=== PATIENT | female | born 1945 | race Caucasian/White ===

== ENCOUNTER → 2022-11-29 14:10 | Outpatient (BNVA) | payer MEDICARE, SELFPAY | PROVIDERS: Referring Provider Physician Assistant; Visit Provider Podiatrist Foot & Ankle Surgery | DX: M19.071 Primary osteoarthritis, right ankle and foot (principal); M20.11 Hallux valgus (acquired), right foot | CPT/HCPCS: 99204 ==

== ENCOUNTER → 2023-09-05 10:15 | Outpatient (BNVA) | payer MEDICARE, SELFPAY | PROVIDERS: PCP Family Medicine; Visit Provider Internal Medicine Rheumatology | DX: Z79.899 Other long term (current) drug therapy (principal); M19.90 Unspecified osteoarthritis, unspecified site; Z11.59 Encounter for screening for other viral diseases; M81.0 Age-related osteoporosis without current pathological fracture; Z11.1 Encounter for screening for respiratory tuberculosis; M19.041 Primary osteoarthritis, right hand; M21.612 Bunion of left foot | CPT/HCPCS: 36415; 73130; 73630; 80076; 82306; 82565; 85025; 85651; 86140; 86200; 86431; 86480; 86704; 86803; 87340; 99204 ==

== ENCOUNTER 2023-09-11 13:02 | Outpatient (CLI) | payer MEDICARE, SELFPAY ==
--- NOTE | 2023-09-11 13:30 | XR_ITS ---
WS: [id number] SCREENING DEXA SCAN [employer] CLINICAL INFORMATION: M81.0 - Age-related osteoporosis without current patholog... COMPARISON: 2018 FINDINGS: The L1-L4 bone mineral density measures 1.004 g/cm2. This corresponds to a T score score of -1.5 and Z score of -0.4. Left femoral neck bone mineral density measures 0.891 g/cm2. This corresponds to a T score of -0.9 an d Z score of 0.4. Right femoral neck bone mineral density measures 0.763 g/cm2. This corresponds to a T score -1.9of an d Z score of -0.6. Mean femoral neck bone mineral density measures 0.827 g/cm2. This corresponds to a T score of -1.4 an d Z score of -0.1. IMPRESSION: Osteopenia lumbar spine. Osteopenia femoral necks. Patient's FRAX calculated 10 year probability for major osteoporotic fracture is 50.8% and osteoporot ic hip fracture is 33.1%. Bone mineral density lumbar spine increased 2.8% Bone mineral density femoral necks decreased -7.6%
== END 2023-09-11 13:03 | disposition home or self-care (01) ==
LOC: RAD 13:02
PROVIDERS: PCP Family Medicine; Visit Provider Internal Medicine Rheumatology
DX: M81.0 Age-related osteoporosis without current pathological fracture (principal); M85.88 Other specified disorders of bone density and structure, other site
CPT/HCPCS: 77080

== ENCOUNTER → 2023-11-22 14:33 | Outpatient (BNVA) | payer MEDICARE, SELFPAY | PROVIDERS: PCP Family Medicine; Visit Provider Internal Medicine Rheumatology | DX: Z79.899 Other long term (current) drug therapy; R76.8 Other specified abnormal immunological findings in serum; Z71.85 Encounter for immunization safety counseling; M05.79 Rheumatoid arthritis with rheumatoid factor of multiple sites without organ or systems involvement | CPT/HCPCS: 36415; 87517; 99214 ==

== ENCOUNTER 2024-02-15 09:50 | Outpatient (CLI) | payer MEDICARE, SELFPAY ==
--- NOTE | 2024-02-15 09:53 | CT_ITS ---
WS: [id number] LDCT LUNG CANCER SCREENING TECHNIQUE: Noncontrast CT of the chest with coronal and sagittal reformatted images. CLINICAL INFORMATION: NICOTINE DEPENDENCE,CIGARETTES COMPARISON: None. DLP: 91.77 mGy.cm DIvol: Mean CTDIvol: 1.90 (mGy) All CT scans at [facility] use at least one of these dose optimization techniques: automat ed exposure control; mA and/or kV adjustment per patient size (includes targeted exams where dose is matched to clinical indication); or iterative reconstruction. FINDINGS: Slight bibasal atelectasis. A few tiny micronodules. 5 mm pleural nodule along the RIGHT horizontal f issure. No other suspicious pulmonary parenchymal abnormalities. Normal caliber thoracic aorta. Aortic calcification. Coronary calcification. No mediastinal or hilar lymphadenopathy. No axillary lymphadenopathy. Cholecystectomy clips. Small esophageal hiatal hernia. Vascular calcification. Adrenal glands are nor mal. LEFT renal cyst. Splenic artery calcification. Mild thoracic curve. Mild thoracic kyphosis. Hype rtrophic changes thoracic spine. CT/CT lung screening [id number] IMPRESSION: LUNG-RADS: 2-Benign Appearance or Behavior FOLLOW UP: 12 Month: Continue annual screening with LDCT
== END 2024-02-15 09:51 | disposition home or self-care (01) ==
LOC: RAD 09:50
PROVIDERS: PCP Family Medicine; Visit Provider Family Medicine
DX: F17.210 Nicotine dependence, cigarettes, uncomplicated (principal); Z12.2 Encounter for screening for malignant neoplasm of respiratory organs
CPT/HCPCS: 71271

== ENCOUNTER → 2024-03-06 10:43 | Outpatient (BNVA) | payer MEDICARE, SELFPAY | PROVIDERS: PCP Family Medicine; Referring Provider Family Medicine; Visit Provider Physician Assistant | DX: M17.11 Unilateral primary osteoarthritis, right knee | CPT/HCPCS: 73560; 73565; 99203 ==

== ENCOUNTER 2024-03-06 14:00 | Outpatient (CLI) | payer MEDICARE, SELFPAY | END 2024-03-06 14:01 | disposition home or self-care (01) | LOC: SPT 14:01 | PROVIDERS: PCP Family Medicine; Visit Provider Physician Assistant | DX: Z46.89 Encounter for fitting and adjustment of other specified devices (principal); M17.11 Unilateral primary osteoarthritis, right knee | CPT/HCPCS: 97760; L1851 ==

== ENCOUNTER → 2024-04-10 14:13 | Outpatient (BNVA) | payer MEDICARE, SELFPAY | PROVIDERS: PCP Family Medicine; Visit Provider Internal Medicine Rheumatology | DX: M05.79 Rheumatoid arthritis with rheumatoid factor of multiple sites without organ or systems involvement (principal); M19.041 Primary osteoarthritis, right hand; M19.042 Primary osteoarthritis, left hand; Z11.1 Encounter for screening for respiratory tuberculosis; Z11.59 Encounter for screening for other viral diseases; Z71.85 Encounter for immunization safety counseling; Z79.899 Other long term (current) drug therapy | CPT/HCPCS: 36415; 80076; 82565; 85025; 85651; 86140; 99214 ==

== ENCOUNTER → 2024-07-31 09:05 | Outpatient (BNVA) | payer MEDICARE, SELFPAY | PROVIDERS: PCP Family Medicine; Visit Provider Physician Assistant | DX: M17.0 Bilateral primary osteoarthritis of knee (principal) | CPT/HCPCS: 73560; 73565; 99213 ==

== ENCOUNTER → 2024-08-20 10:56 | Outpatient (BNVA) | payer MEDICARE, SELFPAY | PROVIDERS: PCP Family Medicine; Visit Provider Internal Medicine Rheumatology | DX: M05.79 Rheumatoid arthritis with rheumatoid factor of multiple sites without organ or systems involvement (principal); Z79.899 Other long term (current) drug therapy; Z71.85 Encounter for immunization safety counseling | CPT/HCPCS: 99214 ==

== ENCOUNTER → 2024-12-01 08:55 | Outpatient (BNVA) | payer MEDICARE, SELFPAY | PROVIDERS: PCP Family Medicine; Visit Provider Internal Medicine | DX: E03.9 Hypothyroidism, unspecified (principal); Z78.0 Asymptomatic menopausal state | CPT/HCPCS: 99204 ==

== ENCOUNTER 2024-12-16 14:09 | Outpatient (CLI) | payer MEDICARE, SELFPAY ==
[2024-12-16 15:02] LABS: Basophils # 0.1 10^3/uL (0.0-0.1); Basophils % 0.7 %; Eosinophils # 0.1 10^3/uL (0.0-0.8); Eosinophils % 1.7 %; Hematocrit 39.1 % (36-47); Lymphocytes % 28.8 %; Mean Corpuscular Hemoglobin 29.4 pg (27-33); Mean Corpuscular Volume 86.5 fl (85-98); Mean Platelet Volume 10.7 fL (7.4-10.4); Monocytes # 0.8 10^3/uL (0.2-0.9); Monocytes % 10.7 %; Neutrophils # 4.03 10^3/uL (1.8-7.7); Neutrophils % 57.4 %; Nucleated Red Blood Cells % 0 %; Platelet Count 203 10^3/cmm (157-399); Red Blood Count 4.52 10^6/uL (3.85-5.65); Red Cell Distribution Width 13.7 % (12.1-15.1); White Blood Count 7.02 10^3/uL (3.29-11.43)
[2024-12-16 15:12] LABS: Erythrocyte Sedimentation Rate 5 mm/hr (0-15)
[2024-12-16 17:30] LABS: Alanine Aminotransferase 21 U/L (0-33); Albumin Level 4.3 g/dL (3.5-5.2); Alkaline Phosphatase 62 U/L (35-105); Aspartate Amino Transferase 25 U/L (0-32); Globulin 2.2 g/dL (1.3-4.6); Thyroid Stimulating Hormone 0.24 uIU/mL (0.27-4.20); Total Bilirubin 0.5 mg/dL (0.15-1.2); Total Protein 6.5 g/dL (6.6-8.7)
[2024-12-16 21:07] LABS: Free T4 Free Thyroxine 1.49 ng/dL (0.82-1.77)
== END 2024-12-16 14:10 | disposition home or self-care (01) ==
LOC: LAB 14:11
PROVIDERS: PCP Family Medicine; Visit Provider Internal Medicine Rheumatology
DX: M05.79 Rheumatoid arthritis with rheumatoid factor of multiple sites without organ or systems involvement (principal); Z79.899 Other long term (current) drug therapy; E03.9 Hypothyroidism, unspecified
CPT/HCPCS: 36415; 80076; 82565; 84439; 84443; 85025; 85651; 86140

== ENCOUNTER → 2024-12-24 08:50 | Outpatient (BNVA) | payer MEDICARE, SELFPAY | PROVIDERS: PCP Family Medicine; Visit Provider Internal Medicine Rheumatology | DX: Z79.899 Other long term (current) drug therapy (principal); Z71.85 Encounter for immunization safety counseling; M05.79 Rheumatoid arthritis with rheumatoid factor of multiple sites without organ or systems involvement | CPT/HCPCS: 99214 ==

== ENCOUNTER 2025-02-11 16:47 | Emergency (ER) | payer MEDICARE, SELFPAY ==
--- NOTE | 2025-02-11 16:51 | ECG_ITS ---
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
--- NOTE | 2025-02-11 16:51 | XRR_ITS ---
PROCEDURE INFORMATION: Exam: XR Chest Exam date and time: 02/11/2025 5:03 PM Age: 79 years old Clinical indication: Other: Dizzy TECHNIQUE: Imaging protocol: Radiologic exam of the chest. Views: 1 view. COMPARISON: CT lung screening [id number] 02/15/2024 10:10 AM FINDINGS: Lungs: Lungs appear clear without consolidation. Pleural spaces: No evidence of a pneumothorax. No pleural effusion is seen. Heart/Mediastinum: Normal size of the cardiac silhouette. Vasculature: There is atherosclerotic calcification within the aortic arch. Bones/joints: Scattered degenerative changes in the visualized spine. There are degenerative changes in the shoulders. XR/XR chest 1V portable [id number] IMPRESSION: 1. No radiographically apparent acute cardiopulmonary disease.
[2025-02-11 17:03] VITALS: BP 175/92; PULSE 61; RESP 18; TEMP 36.7; O2SAT 95; BMI 32.0
[2025-02-11 17:08] LABS: Glucose Point of Care 144 mg/dL (70-110)
[2025-02-11 17:22] LABS: Basophils % 0.5 %; Eosinophils # 0.2 10^3/uL (0.0-0.8); Eosinophils % 2.1 %; Hematocrit 40.3 % (36-47); Lymphocytes # 1.9 10^3/uL (0.8-4.8); Lymphocytes % 23.9 %; Mean Corpuscular HGB Conc 33.5 g/dL (30-55); Mean Corpuscular Hemoglobin 28.8 pg (27-33); Mean Corpuscular Volume 85.9 fl (85-98); Mean Platelet Volume 11.1 fL (7.4-10.4); Monocytes # 0.6 10^3/uL (0.2-0.9); Monocytes % 7.4 %; Neutrophils % 65.7 %; Nucleated Red Blood Cells % 0 %; Platelet Count 178 10^3/cmm (157-399); Red Blood Count 4.69 10^6/uL (3.85-5.65); Red Cell Distribution Width 13.2 % (12.1-15.1); White Blood Count 8.07 10^3/uL (3.29-11.43)
[2025-02-11 17:35] LABS: INR 0.91 (0.8-1.2)
[2025-02-11 17:45] LABS: Alanine Aminotransferase 26 U/L (0-33); Alkaline Phosphatase 57 U/L (35-105); Aspartate Amino Transferase 25 U/L (0-32); Blood Urea Nitrogen 13 mg/dL (8-23); Calcium 9.4 mg/dL (8.5-10.5); Carbon Dioxide 23 mmol/L (22-29); Chloride 101 mmol/L (98-107); Creatinine Clr Calc Pharmacy 50.2696; Globulin 2.3 g/dL (1.3-4.6); Glucose 117 mg/dL (65-115); Osmolality Calculated 287 mOsm/kg (285-295); Sodium 138 mmol/L (136-145); Total Bilirubin 0.2 mg/dL (0.15-1.2); Total Protein 6.3 g/dL (6.6-8.7)
[2025-02-11 17:46] LABS: Anion Gap 17.5 (5-19); Potassium 3.5 mmol/L (3.5-5.1)
--- NOTE | 2025-02-11 18:05 | CTR_ITS ---
PROCEDURE INFORMATION: Exam: CT Head Without Contrast Exam date and time: 02/11/2025 6:33 PM Age: 79 years old Clinical indication: Dizziness; Additional info: Vertigo, gait issues TECHNIQUE: Imaging protocol: Computed tomography of the head without contrast. Radiation optimization: All CT scans at this facility use at least one of these dose optimization techniques: automated exposure control; mA and/or kV adjustment per patient size (includes targeted exams where dose is matched to clinical indication); or iterative reconstruction. COMPARISON: CR XR cervical spine 3V* [id number] 03/02/2023 12:59 PM RADIATION DOSE METRICS: Total DLP (mGy-cm): 1020.19 FINDINGS: Brain: There is mild cerebral volume loss with associated mild prominence of the CSF spaces. There is patchy hypoattenuation in the periventricular white matter. While nonspecific, this is favored to represent chronic small vessel ischemic change. No evidence of acute intracranial hemorrhage. No extra-axial fluid collection. No intracranial mass or mass effect. No midline shift. Cerebral ventricles: The ventricles appear enlarged, in proportion to the mild parenchymal volume loss. Paranasal sinuses: Visualized paranasal sinuses are normally aerated and clear throughout. Mastoid air cells: Visualized mastoid air cells are clear. Bones: Osseous calvarium appears intact. No fracture is seen. Soft tissues: The visualized superficial soft tissues have a normal appearance. Vasculature: There is calcific atherosclerosis within the cavernous carotids. CT/CT head wo con* [id number]PRESS[address]: 1. No CT evidence of acute intracranial pathology. 2. Chronic senescent changes as above.
--- NOTE | 2025-02-11 18:11 | W.ED.DIZZY ---
HPI - Dizziness General: Chief Complaint: Dizziness Stated Complaint: dizziness Time Seen by Provider: 02/11/25 18:05 History of Present Illness: HPI Narrative: 79-year-old female with a history of rheumatoid arthritis on prednisone 5 mg daily and hydroxychloroquine, hypertension, hyperlipidemia and diet-controlled diabetes who presents to the emergency room with dizziness and balance issues. This been going on for about a week now. Worse today. No nausea or vomiting. No altered mental status. No focal motor deficits. Dizziness seems to be positional in nature. When she rolls over or sits up. Related Data Home Medications ?Medication ?Instructions ?Recorded ?Confirmed hydrochlorothiazide 12.5 mg tablet 12.5 mg PO DAILY 09/05/23 12/24/24 levothyroxine 112 mcg tablet 112 mcg PO DAILY 09/05/23 12/24/24 (Synthroid) losartan 50 mg tablet 50 mg PO DAILY 09/05/23 12/24/24 metoprolol succinate 25 mg 25 mg PO DAILY 09/05/23 12/24/24 tablet,extended release 24 hr rosuvastatin 10 mg tablet 10 mg PO DAILY 09/05/23 12/24/24 Previous Rx's ?Medication ?Instructions ?Recorded Right Knee (medial) Checkout Operator Brace #1 ea 03/06/24 diclofenac sodium 1 % topical gel 4 g topical QID #100 grams 04/10/24 (Voltaren Arthritis Pain) hydroxychloroquine 200 mg tablet 200 mg PO BID #60 tabs 12/24/24 omeprazole 20 mg capsule,delayed 20 mg PO DAILY #90 caps 12/24/24 release prednisone 5 mg tablet 5 mg PO DAILY #90 tabs 12/24/24 cephalexin 500 mg tablet 500 mg PO TID 5 days #15 tabs 02/11/25 meclizine 25 mg tablet 25 mg PO QID PRN dizziness #20 tabs 02/11/25 Allergies Allergy/AdvReac Type Severity Reaction Status Date / Time leflunomide AdvReac Intermediate Diarrhea Verified 12/24/24 09:21 Review of Systems Narrative: Constitutional symptoms: Negative except as documented in HPI. Skin symptoms: Negative except as documented in HPI. Eye symptoms: Negative except as documented in HPI. ENMT symptoms: Negative except as documented in HPI. Respiratory symptoms: Negative except as documented in HPI. Cardiovascular symptoms: Negative except as documented in HPI. Gastrointestinal symptoms: Negative except as documented in HPI. Genitourinary symptoms: Negative except as documented in HPI. Musculoskeletal symptoms: Negative except as documented in HPI. Neurologic symptoms: Negative except as documented in HPI. Psychiatric symptoms: Negative except as documented in HPI. Endocrine symptoms: Negative except as documented in HPI. PFSH ED PFSH: Medical History Post-menopausal Hypothyroid Seropositive rheumatoid arthritis of multiple sites Immunization counseling High risk medication use Inflammatory arthritis Hypertension Diabetes Surgical History History of cholecystectomy Family History Other Diabetes mellitus, type 2 Rheumatoid arthritis Social History (Updated 12/24/24 @ 09:22 by Ama Parisi LPN) Smoking and tobacco/nicotine status: current every day tobacco/nicotine user (vape) e-cigarettes E-Cigarette Details: vaporizer device Alcohol intake: current Alcohol intake frequency: 0-2 Drinks per Day Physical Exam Narrative: EXAM NARRATIVE: General: Alert, no acute distress. Skin: Warm, dry. Head: Normocephalic, atraumatic. Neck: Supple, trachea midline. Eye: Extraocular movements are intact. Ears, nose, mouth and throat: mucosa moist. Cardiovascular: Regular, Normal peripheral perfusion. Respiratory: Lungs are clear to auscultation, respirations are non-labored, breath sounds are equal, Symmetrical chest wall expansion. Gastrointestinal: Soft, Nontender, Non distended Musculoskeletal: Normal ROM, no deformity. Neurological: Alert and oriented, No focal neurological deficit observed. Psychiatric: Cooperative, appropriate mood & affect. Course Vital Signs: Vital signs: Vital Signs Temperature 98.0 F 02/11/25 17:03 Pulse Rate 57 L 02/11/25 18:27 Respiratory Rate 18 02/11/25 17:03 Blood Pressure 175/92 02/11/25 17:03 Pulse Oximetry 96 02/11/25 18:27 Oxygen Delivery Me thod Room Air 02/11/25 17:03 MDM - Dizziness Medical Decision Making Medical decision making: Differential diagnosis including but not limited to and based on the above HPI, review of systems and physical exam: for patient with complaint of dizziness: stroke, hypotension, hypertension, infection, vertigo, orthostasis Orders placed to evaluate differential diagnosis based on the above differential, HPI and physical exam EKG: Normal sinus rhythm, No ST-T changes, no ectopy, normal CA & QRS intervals, This was reviewed and interpreted by myself the ER physician at 1705. Chest x-ray: No acute process. No infiltrate. No pneumothorax. This was reviewed and interpreted by myself the emergency room physician. I also reviewed the radiology report. CT head: No acute intracranial process. no intracranial hemorrhage, no evidence of infarct. no evidence of acute fracture.This was reviewed and interpreted by myself the ER physician. Lab Review: Laboratory results were reviewed and interpreted by myself the emergency room physician. No leukocytosis. No anemia. No renal failure. Urinalysis did have 4+ bacteria with minimal white cells so she could have a urinary tract infection. I reviewed the patient's medical record. Reexamination: Patient remained stable. No increased work of breathing. No altered mental status. No focal motor deficits. No nystagmus. Assessment and plan: Vertigo Urinary tract infection ? Meclizine and Keflex in the emergency room. - Discharged home - Discussed plan with patient. Answered any questions. - Evaluation and treatment of this problem were appropriate in the emergency setting. Lab Data 02/11/25 17:07 02/11/25 17:07 Radiology Impressions Chest X-Ray 02/11/25 16:51 IMPRESSION: 1. No radiographically apparent acute cardiopulmonary disease. Head CT 02/11/25 18:05 IMPRESSION: 1. No CT evidence of acute intracranial pathology. 2. Chronic senescent changes as above. Laboratory Results WBC 8.07 10^3/uL (3.29-11.43) 02/11/25 17:07 RBC 4.69 10^6/uL (3.85-5.65) 02/11/25 17:07 Hgb 13.50 g/dL (11.27-16.99) 02/11/25 17:07 Hct 40.3 % (36-47) 02/11/25 17:07 MCV 85.9 fl (85-98) 02/11/25 17:07 MCH 28.8 pg (27-33) 02/11/25 17:07 MCHC 33.5 g/dL (30-55) 02/11/25 17:07 RDW 13.2 % (12.1-15.1) 02/11/25 17:07 Plt Count 178 10^3/cmm (157-399) 02/11/25 17:07 MPV 11.1 fL (7.4-10.4) H 02/11/25 17:07 Neut % (Auto) 65.7 % 02/11/25 17:07 Lymph % (Auto) 23.9 % 02/11/25 17:07 Kinney % (Auto) 7.4 % 02/11/25 17:07 Eos % (Auto) 2.1 % 02/11/25 17:07 Baso % (Auto) 0.5 % 02/11/25 17:07 Neut # (Auto) 5.30 10^3/uL (1.8-7.7) 02/11/25 17:07 Lymph # (Auto) 1.9 10^3/uL (0.8-4.8) 02/11/25 17:07 Kinney # (Auto) 0.6 10^3/uL (0.2-0.9) 02/11/25 17:07 Eos # (Auto) 0.2 10^3/uL (0.0-0.8) 02/11/25 17:07 Baso # (Auto) 0.0 10^3/uL (0.0-0.1) 02/11/25 17:07 Nucleated RBC % (auto) 0 % 02/11/25 17:07 Nucleated RBCs # 0.0 /100WBC 02/11/25 17:07 PT 12.90 SECONDS (12.1-14.9) 02/11/25 17:07 INR 0.91 (0.8-1.2) 02/11/25 17:07 Sodium 138 mmol/L (136-145) 02/11/25 17:07 Potassium 3.5 mmol/L (3.5-5.1) 02/11/25 17:07 Chloride 101 mmol/L (98-107) 02/11/25 17:07 Carbon Dioxide 23 mmol/L (22-29) 02/11/25 17:07 Anion Gap 17.5 (5-19) 02/11/25 17:07 BUN 13 mg/dL (8-23) 02/11/25 17:07 Creatinine 0.9 mg/dL (0.5-0.9) 02/11/25 17:07 GFR Calculation Not Reportable 02/11/25 17:07 Glucose 117 mg/dL (65-115) H 02/11/25 17:07 POC Glucose 144 mg/dL (70-110) H 02/11/25 17:05 Calculated Osmolality 287 mOsm/kg (285-295) 02/11/25 17:07 Calcium 9.4 mg/dL (8.5-10.5) 02/11/25 17:07 Total Bilirubin 0.2 mg/dL (0.15-1.2) 02/11/25 17:07 AST 25 U/L (0-32) 02/11/25 17:07 ALT 26 U/L (0-33) 02/11/25 17:07 Alkaline Phosphatase 57 U/L (35-105) 02/11/25 17:07 Total Protein 6.3 g/dL (6.6-8.7) L 02/11/25 17:07 Albumin 4.0 g/dL (3.5-5.2) 02/11/25 17:07 Globulin 2.3 g/dL (1.3-4.6) 02/11/25 17:07 Urine Color Yellow (Yellow) 02/11/25 18:23 Urine Appearance Clear (CLEAR) 02/11/25 18:23 Urine pH 7.0 (5-7) 02/11/25 18:23 Ur Specific Adona 1.006 (1.005-1.030) 02/11/25 18:23 Urine Protein Negative (Negative) 02/11/25 18:23 Urine Glucose (UA) Negative (Normal) 02/11/25 18:23 Urine Ketones Negative (Negative) 02/11/25 18:23 Urine Blood Negative (Negative) 02/11/25 18:23 Urine Nitrate Negative (Negative) 02/11/25 18:23 Urine Bilirubin Negative (Negative) 02/11/25 18: Urine Urobilinogen 1.0 mg/dL (Negative) 02/11/25 18:23 Ur Leukocyte Esterase Trace (Negative) A 02/11/25 18:23 Urine RBC 0-2 /hpf (0-2) 02/11/25 18:23 Urine WBC 0-5 /hpf (0-5) 02/11/25 18:23 Ur Squamous Epith Cells 0-5 /hpf (0-5) 02/11/25 18:23 Amorphous Sediment Not Reportable 02/11/25 18:23 Urine Bacteria 4+ /hpf (NONE) H 02/11/25 18:23 Hyaline Casts 0-4 /lpf H 02/11/25 18:23 All radiology interpretation(s) finalized by discharge Discharge Plan Discharge Patient Disposition: Home Clinical Impression: Vertigo, Urinary tract infection Condition: Stable Prescriptions: New cephalexin 500 mg tablet 500 mg PO TID 5 Days Qty: 15 0RF meclizine 25 mg tablet 25 mg PO QID PRN (Reason: dizziness) Qty: 20 0RF No Action (DME) Right Knee (medial) Checkout Operator Brace See Rx Instructions .Route .MEDSUPPLY Qty: 1 0RF Rx Instructions: As directed metoprolol succinate 25 mg tablet extended release 24 hr 25 mg PO DAILY rosuvastatin 10 mg tablet 10 mg PO DAILY hydrochlorothiazide 12.5 mg tablet 12.5 mg PO DAILY losartan 50 mg tablet 50 mg PO DAILY levothyroxine [Synthroid] 112 mcg tablet 112 mcg PO DAILY diclofenac sodium [Voltaren Arthritis Pain] 1 % gel 4 g topical QID Qty: 100 2RF Rx Instructions: apply to single knee, ankle, foot; for foot includes sole/toes/top of foot hydroxychloroquine 200 mg tablet 200 mg PO BID Qty: 60 5RF omeprazole 20 mg capsule,delayed release(DR/EC) 20 mg PO DAILY Qty: 90 1RF prednisone 5 mg tablet 5 mg PO DAILY Qty: 90 1RF Discharge Orders: Discharge ED (Routine); Ordered 02/11/25 Ordered By: Nat Guerrier Referrals: Ezekiel Head MD [Primary Care Provider, Family Practice] Discharge Diet: Usual diet Discharge Activity: Increase activity as tolerated Patient Instructions: Vertigo (ED), Benign Paroxysmal Positional Vertigo (ED), Opioid Safety, Pain Management Activity Restrictions/Additional Instructions: Thank you for choosing [facility] for your healthcare needs today. You have been screened and evaluated and felt safe for discharge. Health conditions do change or evolve sometimes and as such it is important that you follow up with your Primary Doctor to be re checked, 3-5 days is a general good time frame for follow up. You are always welcome to return to the ED for re assessment if your symptoms are worsening or you have new concerns Print Language: Singaporean Coding Level of Care Code ED Certified Technician for Nick Cerna
[2025-02-11 18:27] VITALS: PULSE 57; O2SAT 96
[2025-02-11 18:33] LABS: Bilirubin Urine Negative (Negative); Blood Urine Negative (Negative); Glucose Urine UA Negative (Normal); Ketones Urine Negative (Negative); Leukocyte Esterase Urine Trace (Negative); Nitrate Urine Negative (Negative); Protein Urine Negative (Negative); Specific Gravity, Urine 1.006 (1.005-1.030); Urine Appearance Clear (CLEAR); Urine Color Yellow (Yellow)
[2025-02-11 18:35] LABS: Bacteria Urine 4+ /hpf; Hyaline Casts Urine 0-4 /lpf; RBC Urine 0-2 /hpf (0-2); Squamous Epithelial Cell Urine 0-5 /hpf (0-5); WBC Urine 0-5 /hpf (0-5)
[2025-02-11 18:57] LABS: Add Urine Culture? No
[2025-02-11] MEDS: meclizine 25 mg tablet 50 MG PO (19:42)
[2025-02-11] MEDS: cephALEXin 500 mg Capsule PO (19:42)
== END 2025-02-11 19:50 | disposition home or self-care (01) ==
PROVIDERS: Emergency Medicine; Emergency Provider Emergency Medicine; PCP Family Medicine
DX: R42 Dizziness and giddiness (principal); N39.0 Urinary tract infection, site not specified; F17.290 Nicotine dependence, other tobacco product, uncomplicated; E11.9 Type 2 diabetes mellitus without complications; I10 Essential (primary) hypertension
CPT/HCPCS: 36415; 36416; 70450; 71045; 80053; 81001; 82962; 85025; 85610; 93005; 99285; J8597; J9999

== ENCOUNTER → 2025-02-18 13:24 | Outpatient (BNVA) | payer MEDICARE, SELFPAY | PROVIDERS: PCP Family Medicine; Visit Provider Internal Medicine | DX: E03.9 Hypothyroidism, unspecified (principal); Z78.0 Asymptomatic menopausal state; Z79.899 Other long term (current) drug therapy | CPT/HCPCS: 36415; 80053; 80061; 82044; 83036; 84439; 84443 ==

== ENCOUNTER 2025-04-08 14:09 | Outpatient (CLI) | payer MEDICARE, SELFPAY ==
--- NOTE | 2025-04-08 14:18 | MR_ITS ---
WS: [id number] MRI HEAD WITH CONTRAST WITH ATTENTION TO THE INTERNAL AUDITORY CANALS TECHNIQUE: Sagittal T1, T2 axial, T2 axial flair, axial susceptibility weighted imaging, axial diffusion weighted images, and coronal T2 images were obtained. Pre and post T1 axial and post T1 coronal images. ADC and FSPGR images. Post gadolinium images with attention to the internal auditory canals. Axial fiesta imaging. CLINICAL INFORMATION: BILATERAL HEARING LOSS,SENSORINEURAL COMPARISON: None. FINDINGS: No evidence of restricted diffusion to suggest acute ischemia. Ventricular system and basilar cisterns are patent. Mild small vessel changes. Moderate parenchymal volume loss. Normal posterior fossa. Normal vascular flow voids at the skull base. Small retention cysts in the maxillary sinuses. No hemosiderin on the susceptibility weighted images. 7th and 8th cranial nerves are normal in appearance. Normal trigeminal nerve root entry zones. No evidence of enhancing IAC or CP angle mass. No abnormal gadolinium enhancement. Normal dural venous sinuses. No other suspicious findings. MR/MR iac's wo/w con* [id number] IMPRESSION: 1. No evidence of restricted diffusion to suggest acute ischemia. 2. Mild small vessel changes with moderate parenchymal volume loss. 3. No evidence of enhancing IAC or CP angle mass. 4. Mastoid air cells and paranasal sinuses are well aerated. 5. No other acute findings.
[2025-04-08] MEDS: gadobenate dimeglumine 20 mL vial 17 ML IV (15:09)
== END 2025-04-08 14:10 | disposition home or self-care (01) ==
LOC: RAD 14:10
PROVIDERS: PCP Family Medicine; Visit Provider Nurse Practitioner Family
DX: H90.3 Sensorineural hearing loss, bilateral (principal)
CPT/HCPCS: 70553

== ENCOUNTER 2025-08-12 14:30 | Outpatient (CLI) | payer MEDICARE, SELFPAY ==
[2025-08-12 14:55] LABS: Hematocrit 40.4 % (36-47); Hemoglobin 13.90 g/dL (11.27-16.99); Mean Corpuscular HGB Conc 34.4 g/dL (30-55); Mean Corpuscular Hemoglobin 28.4 pg (27-33); Mean Corpuscular Volume 82.6 fl (85-98); Nucleated Red Blood Cells % 0 %; Platelet Count 200 10^3/cmm (157-399); Red Blood Count 4.89 10^6/uL (3.85-5.65); White Blood Count 7.71 10^3/uL (3.29-11.43)
[2025-08-12 15:23] LABS: Alanine Aminotransferase 21 U/L (0-33); Albumin Level 4.1 g/dL (3.5-5.2); Alkaline Phosphatase 58 U/L (35-105); Aspartate Amino Transferase 24 U/L (0-32); Globulin 2.4 g/dL (1.3-4.6); Total Protein 6.5 g/dL (6.6-8.7)
== END 2025-08-12 14:31 | disposition home or self-care (01) ==
LOC: LAB 14:31
PROVIDERS: PCP Family Medicine; Visit Provider Internal Medicine Rheumatology
DX: Z79.899 Other long term (current) drug therapy (principal); M05.79 Rheumatoid arthritis with rheumatoid factor of multiple sites without organ or systems involvement
CPT/HCPCS: 36415; 80076; 82565; 85025; 85651; 86140

== ENCOUNTER → 2025-08-17 11:32 | Outpatient (BNVA) | payer MEDICARE, SELFPAY | PROVIDERS: PCP Family Medicine; Visit Provider Internal Medicine Rheumatology | DX: M05.79 Rheumatoid arthritis with rheumatoid factor of multiple sites without organ or systems involvement (principal); Z79.899 Other long term (current) drug therapy; Z71.85 Encounter for immunization safety counseling | CPT/HCPCS: 99214 ==